=== PATIENT | male | born 1945 | race Caucasian/White ===

== ENCOUNTER 2017-11-06 01:43 | Outpatient (RCR) | payer MEDICARE, MEDICAID, SELFPAY ==
[2017-11-06] MEDS: Normal Saline Flush 10 ML SYR IVP (11:20)
== END 2017-12-01 ==
LOC: INF 01:43
PROVIDERS: PCP Neuromusculoskeletal Medicine & OMM; Visit Provider Family Medicine
DX: M06.9 Rheumatoid arthritis, unspecified (principal)
CPT/HCPCS: 96365; J3490

== ENCOUNTER 2017-12-05 01:38 | Outpatient (RCR) | payer MEDICARE, MEDICAID, SELFPAY ==
[2017-12-05] MEDS: Normal Saline Flush 10 ML SYR IVP (11:49)
== END 2017-12-31 23:59 | disposition home or self-care (01) ==
LOC: INF 01:38
PROVIDERS: PCP Neuromusculoskeletal Medicine & OMM; Visit Provider Family Medicine
DX: M06.9 Rheumatoid arthritis, unspecified (principal)
CPT/HCPCS: 96365; J3490

== ENCOUNTER 2018-01-29 01:24 | Outpatient (RCR) | payer MEDICARE, MEDICAID, SELFPAY ==
[2018-01-01] MEDS: Normal Saline Flush 10 ML SYR IVP (11:45)
== END 2018-01-31 23:59 | disposition home or self-care (01) ==
LOC: INF 01:24
PROVIDERS: PCP Neuromusculoskeletal Medicine & OMM; Visit Provider Family Medicine
DX: M06.9 Rheumatoid arthritis, unspecified (principal)
CPT/HCPCS: 96365; J3490

== ENCOUNTER 2018-02-26 01:42 | Outpatient (RCR) | payer MEDICARE, MEDICAID, SELFPAY ==
[2018-02-01] MEDS: Normal Saline Flush 10 ML SYR IVP (11:32)
[2018-02-26] MEDS: Normal Saline Flush 10 ML SYR IVP (11:24)
== END 2018-03-02 23:59 | disposition home or self-care (01) ==
LOC: INF 01:42
PROVIDERS: PCP Neuromusculoskeletal Medicine & OMM; Visit Provider Family Medicine
DX: M06.9 Rheumatoid arthritis, unspecified (principal)
CPT/HCPCS: 96365; J3490

== ENCOUNTER 2018-03-28 00:38 | Outpatient (RCR) | payer MEDICARE, MEDICAID, SELFPAY ==
[2018-03-28] MEDS: TOCILIZUMAB 800 MG in Normal Saline 60 ML 100 MG IVPB (11:21)
[2018-03-28] MEDS: Normal Saline Flush 10 ML SYR IVP (11:25)
[2018-03-28 12:26] VITALS: BP 121/82; PULSE 88; RESP 18; TEMP 36.5; O2SAT 91
== END 2018-04-02 23:59 | disposition home or self-care (01) ==
LOC: INF 00:38
PROVIDERS: PCP Neuromusculoskeletal Medicine & OMM; Visit Provider Family Medicine
DX: M06.9 Rheumatoid arthritis, unspecified (principal)
CPT/HCPCS: 96365; J3490

== ENCOUNTER 2018-04-30 01:09 | Outpatient (RCR) | payer MEDICARE, MEDICAID, SELFPAY ==
[2018-04-30] MEDS: TOCILIZUMAB 800 MG in Normal Saline 60 ML 100 MG IVPB (11:50)
[2018-04-30] MEDS: Normal Saline Flush 10 ML SYR IVP (11:51)
[2018-04-30 11:52] LABS: HCT 46.8 % (40.0-50.0); HGB 15.6 g/dL (13.5-17.5)
[2018-04-30 12:06] LABS: ALT 51 U/L (12-78); AST 40 U/L (15-37); Albumin 3.5 g/dL (3.4-5.0); Alkaline Phosphatase 109 U/L (46-116); Anion Gap 12.6 mmol/L (3-11); BUN 21 mg/dL (7-18); Bilirubin, Total 0.7 mg/dL (0.2-1.0); CO2 26.4 mmol/L (21.0-32.0); CREATININE 1.33 mg/dL (0.70-1.30); Calcium 8.5 mg/dL (8.5-10.1); Chloride 100 mmol/L (98-107); Estimated GFR 53.16 (mL/min/1.73m2); Glucose 146 mg/dL (70-100); Potassium 3.4 mmol/L (3.5-5.1); Sodium 139 mmol/L (136-145)
[2018-04-30 12:15] LABS: C-Reactive Protein < 0.05 mg/dL (0.0-0.3)
== END 2018-05-03 23:59 | disposition home or self-care (01) ==
LOC: INF 01:09
PROVIDERS: PCP Neuromusculoskeletal Medicine & OMM; Visit Provider Family Medicine
DX: M06.9 Rheumatoid arthritis, unspecified (principal)
CPT/HCPCS: 36415; 80053; 96365; 85014; 85018; 86140; J3490

== ENCOUNTER 2018-06-25 01:28 | Outpatient (RCR) | payer MEDICARE, MEDICAID, SELFPAY ==
[2018-06-01] MEDS: Normal Saline Flush 10 ML SYR IVP (11:44)
[2018-06-01] MEDS: TOCILIZUMAB 800 MG in Normal Saline 60 ML 100 MG IVPB (11:44)
[2018-06-25] MEDS: TOCILIZUMAB 800 MG in Normal Saline 60 ML 100 MG IVPB (11:29)
[2018-06-25] MEDS: Normal Saline Flush 10 ML SYR IVP (11:29)
== END 2018-07-01 23:59 | disposition home or self-care (01) ==
LOC: INF 01:28
PROVIDERS: PCP Neuromusculoskeletal Medicine & OMM; Visit Provider Internal Medicine
DX: M06.9 Rheumatoid arthritis, unspecified (principal)
CPT/HCPCS: 96365; J3490

== ENCOUNTER 2018-07-23 01:01 | Outpatient (RCR) | payer MEDICARE, MEDICAID, SELFPAY ==
[2018-07-23] MEDS: TOCILIZUMAB 800 MG in Normal Saline 60 ML 100 MG IVPB (11:18)
[2018-07-23] MEDS: Normal Saline Flush 10 ML SYR IVP (11:19)
== END 2018-07-31 23:59 | disposition home or self-care (01) ==
LOC: INF 01:01
PROVIDERS: PCP Neuromusculoskeletal Medicine & OMM; Visit Provider Internal Medicine
DX: M06.9 Rheumatoid arthritis, unspecified (principal)
CPT/HCPCS: 96365; J3490

== ENCOUNTER 2018-08-21 00:50 | Outpatient (RCR) | payer MEDICARE, MEDICAID, SELFPAY ==
[2018-08-21] MEDS: Normal Saline Flush 10 ML SYR IVP (11:26)
[2018-08-21] MEDS: TOCILIZUMAB 800 MG in Normal Saline 60 ML 100 MG IVPB (11:26)
== END 2018-08-31 23:59 | disposition home or self-care (01) ==
LOC: INF 00:50
PROVIDERS: PCP Neuromusculoskeletal Medicine & OMM; Visit Provider Internal Medicine
DX: M06.9 Rheumatoid arthritis, unspecified (principal)
CPT/HCPCS: 96365; J3490

== ENCOUNTER 2018-09-17 01:59 | Outpatient (RCR) | payer MEDICARE, MEDICAID, SELFPAY ==
[2018-09-17] MEDS: TOCILIZUMAB 800 MG in Normal Saline 60 ML 100 MG IVPB (11:25)
[2018-09-17] MEDS: Normal Saline Flush 10 ML SYR IVP (11:25)
== END 2018-09-30 23:59 | disposition home or self-care (01) ==
LOC: INF 01:59
PROVIDERS: PCP Neuromusculoskeletal Medicine & OMM; Visit Provider Internal Medicine
DX: M06.9 Rheumatoid arthritis, unspecified (principal); Z79.899 Other long term (current) drug therapy; Z51.81 Encounter for therapeutic drug level monitoring
CPT/HCPCS: 96365; J3490

== ENCOUNTER 2018-10-15 01:59 | Outpatient (RCR) | payer MEDICARE, MEDICAID, SELFPAY ==
[2018-10-15] MEDS: Normal Saline Flush 10 ML SYR IVP (11:18)
[2018-10-15] MEDS: TOCILIZUMAB 800 MG in Normal Saline 60 ML 100 MG IVPB (11:18)
== END 2018-10-31 23:59 | disposition home or self-care (01) ==
LOC: INF 01:59
PROVIDERS: PCP Neuromusculoskeletal Medicine & OMM; Visit Provider Internal Medicine
DX: M06.9 Rheumatoid arthritis, unspecified (principal)
CPT/HCPCS: 96365; J3490

== ENCOUNTER 2018-11-12 01:11 | Outpatient (RCR) | payer MEDICARE, MEDICAID, SELFPAY ==
[2018-11-12] MEDS: TOCILIZUMAB 800 MG in Normal Saline 60 ML 100 MG IVPB (11:58)
[2018-11-12] MEDS: Normal Saline Flush 10 ML SYR IVP (12:00)
== END 2018-12-01 23:59 | disposition home or self-care (01) ==
LOC: INF 01:11
PROVIDERS: PCP Neuromusculoskeletal Medicine & OMM; Visit Provider Family Medicine
DX: M06.9 Rheumatoid arthritis, unspecified (principal)
CPT/HCPCS: 96365; J3490

== ENCOUNTER 2018-12-10 00:46 | Outpatient (RCR) | payer MEDICARE, MEDICAID, SELFPAY ==
[2018-12-10] MEDS: Normal Saline Flush 10 ML SYR IVP (12:00)
[2018-12-10] MEDS: TOCILIZUMAB 800 MG in Normal Saline 60 ML 100 MG IVPB (12:02)
== END 2018-12-31 23:59 | disposition home or self-care (01) ==
LOC: INF 00:46
PROVIDERS: PCP Neuromusculoskeletal Medicine & OMM; Visit Provider Family Medicine
DX: M06.9 Rheumatoid arthritis, unspecified (principal)
CPT/HCPCS: 96365; J3490

== ENCOUNTER 2019-01-07 02:04 | Outpatient (RCR) | payer MEDICARE, MEDICAID, SELFPAY ==
[2019-01-07] MEDS: Normal Saline Flush 10 ML SYR IVP (11:23)
[2019-01-07] MEDS: TOCILIZUMAB 800 MG in Normal Saline 60 ML 100 MG IVPB (11:23)
[2019-01-07 11:29] LABS: ALT 48 U/L (16-63); AST 29 U/L (15-37); Albumin 3.4 g/dL (3.4-5.0); Alkaline Phosphatase 99 U/L (46-116); Bilirubin, Total 0.9 mg/dL (0.2-1.0); CREATININE 1.37 mg/dL (0.70-1.30); Estimated GFR 51.22 (mL/min/1.73m2); Total Protein 6.5 g/dL (6.4-8.2)
[2019-01-07 11:30] LABS: HCT 44.7 % (40.0-50.0); HGB 15.2 g/dL (13.5-17.5)
[2019-01-07 12:55] LABS: ESR 9 mm/hr (1-20)
== END 2019-01-31 23:59 | disposition home or self-care (01) ==
LOC: INF 02:04
PROVIDERS: Nurse Practitioner Family; PCP Neuromusculoskeletal Medicine & OMM; Visit Provider Family Medicine
DX: M06.9 Rheumatoid arthritis, unspecified (principal); Z79.899 Other long term (current) drug therapy
CPT/HCPCS: 36415; 80076; 85652; 96365; 82565; 85014; 85018; J3490

== ENCOUNTER 2019-02-05 01:36 | Outpatient (RCR) | payer MEDICARE, MEDICAID, SELFPAY ==
[2019-02-05] MEDS: Normal Saline Flush 10 ML SYR IVP (11:23)
[2019-02-05] MEDS: TOCILIZUMAB 800 MG in Normal Saline 60 ML 100 MG IVPB (11:23)
== END 2019-03-02 23:59 | disposition home or self-care (01) ==
LOC: INF 01:36
PROVIDERS: PCP Neuromusculoskeletal Medicine & OMM; Visit Provider Family Medicine
DX: M06.9 Rheumatoid arthritis, unspecified (principal)
CPT/HCPCS: 96365; J3490

== ENCOUNTER 2019-04-01 01:12 | Outpatient (RCR) | payer MEDICARE, MEDICAID, SELFPAY ==
[2019-03-04] MEDS: TOCILIZUMAB 800 MG in Normal Saline 60 ML 100 MG IVPB (11:37)
[2019-03-04] MEDS: Normal Saline Flush 10 ML SYR IVP (11:38)
== END 2019-04-02 23:59 | disposition home or self-care (01) ==
LOC: INF 01:12
PROVIDERS: PCP Neuromusculoskeletal Medicine & OMM; Visit Provider Family Medicine
DX: M06.9 Rheumatoid arthritis, unspecified (principal)
CPT/HCPCS: 96365; J3490

== ENCOUNTER 2019-04-08 02:02 | Outpatient (RCR) | payer MEDICARE, MEDICAID, SELFPAY ==
[2019-04-08] MEDS: Normal Saline Flush 10 ML SYR IVP (11:31)
[2019-04-08] MEDS: TOCILIZUMAB 800 MG in Normal Saline 60 ML 100 MG IVPB (11:31)
== END 2019-05-03 23:59 | disposition home or self-care (01) ==
LOC: INF 02:02
PROVIDERS: PCP Neuromusculoskeletal Medicine & OMM; Visit Provider Family Medicine
DX: M06.9 Rheumatoid arthritis, unspecified (principal)
CPT/HCPCS: 96365; J3262

== ENCOUNTER 2019-05-06 02:16 | Outpatient (RCR) | payer MEDICARE, MEDICAID, SELFPAY ==
[2019-05-06] MEDS: TOCILIZUMAB 800 MG in Normal Saline 60 ML 100 MG IVPB (11:27)
[2019-05-06] MEDS: Normal Saline Flush 10 ML SYR IVP (11:27)
== END 2019-06-01 23:59 | disposition home or self-care (01) ==
LOC: INF 02:16
PROVIDERS: PCP Neuromusculoskeletal Medicine & OMM; Visit Provider Family Medicine
DX: M06.9 Rheumatoid arthritis, unspecified (principal)
CPT/HCPCS: 96365; J3262

== ENCOUNTER 2019-06-03 01:57 | Outpatient (RCR) | payer MEDICARE, MEDICAID, SELFPAY ==
[2019-06-03] MEDS: TOCILIZUMAB 800 MG in Normal Saline 60 ML 100 MG IVPB (11:12)
[2019-06-03] MEDS: Normal Saline Flush 10 ML SYR IVP (11:12)
== END 2019-07-02 23:59 | disposition home or self-care (01) ==
LOC: INF 01:57
PROVIDERS: PCP Neuromusculoskeletal Medicine & OMM; Visit Provider Family Medicine
DX: M06.9 Rheumatoid arthritis, unspecified (principal)
CPT/HCPCS: 96365; J3262

== ENCOUNTER 2019-08-28 01:58 | Outpatient (RCR) | payer MEDICARE, MEDICAID, SELFPAY ==
[2019-08-28] MEDS: TOCILIZUMAB 800 MG in Normal Saline 60 ML 100 MG IVPB (10:52)
[2019-08-28] MEDS: Normal Saline Flush 10 ML SYR IVP (10:53)
== END 2019-09-01 23:59 | disposition home or self-care (01) ==
LOC: INF 01:58
PROVIDERS: PCP Neuromusculoskeletal Medicine & OMM; Visit Provider Family Medicine
DX: M06.9 Rheumatoid arthritis, unspecified (principal)
CPT/HCPCS: 96365; J3262

== ENCOUNTER 2019-09-25 01:58 | Outpatient (RCR) | payer MEDICARE, MEDICAID, SELFPAY ==
[2019-09-25] MEDS: TOCILIZUMAB 800 MG in Normal Saline 60 ML 100 MG IVPB (11:03)
[2019-09-25] MEDS: Normal Saline Flush 10 ML SYR IVP (11:04)
== END 2019-10-01 23:59 | disposition home or self-care (01) ==
LOC: INF 01:58
PROVIDERS: PCP Neuromusculoskeletal Medicine & OMM; Visit Provider Family Medicine
DX: M06.9 Rheumatoid arthritis, unspecified (principal)
CPT/HCPCS: 96365; J3262

== ENCOUNTER 2019-11-18 01:18 | Outpatient (RCR) | payer MEDICARE, MEDICAID, SELFPAY | END 2019-11-18 23:59 | disposition home or self-care (01) | LOC: INF 01:18 | PROVIDERS: PCP Neuromusculoskeletal Medicine & OMM; Visit Provider Family Medicine | DX: R69 Illness, unspecified (principal) ==

== ENCOUNTER 2019-11-20 01:46 | Outpatient (RCR) | payer MEDICARE, MEDICAID, SELFPAY ==
[2019-11-20] MEDS: TOCILIZUMAB 800 MG in Normal Saline 60 ML 100 MG IVPB (10:48)
[2019-11-20] MEDS: Normal Saline Flush 10 ML SYR IVP (10:49)
== END 2019-12-02 23:59 | disposition home or self-care (01) ==
LOC: INF 01:46
PROVIDERS: PCP Neuromusculoskeletal Medicine & OMM; Visit Provider Neuromusculoskeletal Medicine & OMM
DX: M06.9 Rheumatoid arthritis, unspecified (principal)
CPT/HCPCS: 96365; J3262

== ENCOUNTER 2019-12-17 00:53 | Outpatient (RCR) | payer MEDICARE, MEDICAID, SELFPAY ==
[2019-12-17] MEDS: TOCILIZUMAB 800 MG in Normal Saline 60 ML 100 MG IVPB (11:14)
[2019-12-17] MEDS: Normal Saline Flush 10 ML SYR IVP (12:55)
== END 2020-01-01 23:59 | disposition home or self-care (01) ==
LOC: INF 00:53
PROVIDERS: PCP Neuromusculoskeletal Medicine & OMM; Visit Provider Family Medicine
DX: M06.9 Rheumatoid arthritis, unspecified (principal)
CPT/HCPCS: 96365; J3262